=== PATIENT | female | born 2000 | race Caucasian/White ===

== ENCOUNTER 2019-09-25 14:40 | Emergency (ER) | payer OTHER ==
[~2019-09-25] VITALS: Ht 177.8 cm; Wt 86.7 kg
[2019-09-25 14:40] VITALS: BP 143/61
[2019-09-25] MEDS ORDERED: LEXA5TAB13 PO (14:48)
[2019-09-25] MEDS ORDERED: NEXP1IMP SC (14:48)
[2019-09-25] MEDS ORDERED: TRAZ-252 PO (14:48)
== END 2019-09-25 16:04 | disposition home or self-care (01) ==
LOC: M ED 14:40
DX: S93.401A Sprain of unspecified ligament of right ankle, initial encounter (principal); X50.1XXA Overexertion from prolonged static or awkward postures, initial encounter; Y92.89 Other specified places as the place of occurrence of the external cause; Y93.01 Activity, walking, marching and hiking; Y99.1 Military activity; Z79.899 Other long term (current) drug therapy

== ENCOUNTER 2020-09-04 13:45 | Emergency (ER) | payer OTHER ==
[~2020-09-04] VITALS: Ht 177.8 cm; Wt 96.8 kg
[~2020-09-04 13:45] MED LIST: LEXA5TAB13 PO; NEXP1IMP SC; TRAZ-252 PO
[2020-09-04] MEDS ORDERED: MUPI2OI TOP (15:09)
[2020-09-04] MEDS ORDERED: VALA1TAB5 PO (15:09)
[2020-09-04 15:21] VITALS: BP 141/80
[2020-09-05] MEDS ORDERED: CEPH500C PO (22:35)
== END 2020-09-04 15:37 | disposition home or self-care (01) ==
LOC: M ED 13:45
DX: B02.9 Zoster without complications (principal); F43.10 Post-traumatic stress disorder, unspecified; G47.00 Insomnia, unspecified; Z79.899 Other long term (current) drug therapy; Z79.3 Long term (current) use of hormonal contraceptives

== ENCOUNTER 2020-09-05 16:23 | Emergency (ER) | payer OTHER ==
[~2020-09-05] VITALS: Ht 177.8 cm; Wt 96.9 kg
[~2020-09-05 16:23] MED LIST changes: +MUPI2OI TOP; +VALA1TAB5 PO
[2020-09-05] MEDS ORDERED: ceFAZolin SOD 1 GM in D5W MINI-BAG PLUS 50 ML IV ONE (19:15)
[2020-09-05] MEDS ORDERED: NS 1,000 ML IV ONE (19:15)
[2020-09-05 20:01] LABS: BASO % 0.5 % (0.0-1.0); EOS # 0.1 10^3/uL (0.0-0.5); EOS % 1.4 % (0.0-3.0); HEMATOCRIT 38.8 % (36.0-47.0); HEMOGLOBIN 12.6 g/dl (12.0-15.5); LYMPH # 1.8 10^3/uL (1.5-5.0); LYMPH % 27.9 % (24.0-44.0); MEAN CORPUSCULAR HEMOGLOBIN 29.6 pg (27.0-33.0); MEAN CORPUSCULAR HGB CONC 32.5 g/dl (32.0-36.5); MEAN CORPUSCULAR VOLUME 91.3 fl (80.0-96.0); MONO # 0.5 10^3/uL (0.0-0.8); MONO % 7.7 % (2.0-8.0); NEUTROPHILS # 4.1 10^3/uL (1.5-8.5); NEUTROPHILS % 62.2 % (36.0-66.0); PLATELET COUNT, AUTOMATED 365 10^3/uL (150-450); RED BLOOD COUNT 4.25 10^6/uL (4.00-5.40); WHITE BLOOD COUNT 6.5 10^3/uL (4.0-10.0)
[2020-09-05 20:18] LABS: BLOOD UREA NITROGEN 11 MG/DL (7-18); CALCIUM LEVEL 8.7 MG/DL (8.5-10.1); CARBON DIOXIDE LEVEL 27 MEQ/L (21-32); CHLORIDE LEVEL 107 MEQ/L (98-107); CREATININE FOR GFR 0.69 MG/DL (0.55-1.30); GLOMERULAR FILTRATION RATE > 60.0 (>60); GLUCOSE, FASTING 84 MG/DL (70-100); POTASSIUM SERUM 4.1 MEQ/L (3.5-5.1); SODIUM LEVEL 141 MEQ/L (136-145)
[2020-09-05] MEDS ORDERED: KETOROLAC 30 MG/ML 1ML VIAL IV ONE (21:50)
[2020-09-05 22:22] VITALS: BP 136/86
[2020-09-05] MEDS ORDERED: CEPH500C PO (22:35)
--- NOTE | 2020-09-06 19:50 | ECGEPIP ---
[facility] - ED Test Date: 2020-09-05 Pat Name: GOOD SALINAS Department: Room: - Gender: Female Mechanical Engineer: ANGELO : 2000 Requested By: ELISEO WOODY PA-C. Order Number: [id number] Reading MD: Ifeoma Christianson Measurements Intervals [place] Rate: 65 P: 44 UT: 184 QRS: 75 QRSD: 76 T: 59 QT: 380 QTc: 395 Interpretive Statements Normal sinus rhythm No prior Electronically Signed on 09-06-2020 19:49:53 EDT by Ifeoma Christianson
== END 2020-09-05 22:42 | disposition home or self-care (01) ==
LOC: M ED 16:23
DX: L03.115 Cellulitis of right lower limb (principal); R55 Syncope and collapse
CPT/HCPCS: 80048; 84702; 85025; 87040; 87070; 87205; 87252; 93005; 96365; 96366; 96375; 99284; J0690; J1885